=== PATIENT | male | born 1970 | race Two or more races ===

== ENCOUNTER 2025-01-07 18:52 | Emergency (ER) | payer OTHER ==
[~2025-01-07] VITALS: Ht 157.5 cm; Wt 72.6 kg
[2025-01-07] MEDS ORDERED: KETOROLAC TROMETHAMINE 60 MG VIAL IM STA (19:16)
[2025-01-07] MEDS ORDERED: KETOROLAC TROMETHAMINE 60 MG VIAL IM ONE (19:20)
== END 2025-01-07 19:27 | disposition home or self-care (01) ==
LOC: ER 18:53
DX: R51.9 Headache, unspecified (principal)